=== PATIENT | male | born 1985 | race Asian ===

== ENCOUNTER 2018-10-15 08:28 | Day surgery (SDC) | payer OTHER ==
[~2018-10-15] VITALS: Ht 177.8 cm; Wt 92.5 kg
[2018-10-15 08:56] VITALS: BP 143/81
[2018-10-15 15:27] VITALS: BP 104/60
== END 2018-10-15 15:20 | disposition home or self-care (01) ==
LOC: DS 08:28 → OR 11:00 → DS 15:20
DX: L72.0 Epidermal cyst (principal); I12.9 Hypertensive chronic kidney disease with stage 1 through stage 4 chronic kidney disease, or unspecified chronic kidney disease; E11.22 Type 2 diabetes mellitus with diabetic chronic kidney disease; N18.9 Chronic kidney disease, unspecified; D64.9 Anemia, unspecified; E66.3 Overweight; J45.909 Unspecified asthma, uncomplicated; K21.9 Gastro-esophageal reflux disease without esophagitis; G40.909 Epilepsy, unspecified, not intractable, without status epilepticus; F03.90 Unspecified dementia, unspecified severity, without behavioral disturbance, psychotic disturbance, mood disturbance, and anxiety; Z79.899 Other long term (current) drug therapy; Z68.32 Body mass index [BMI] 32.0-32.9, adult
CPT/HCPCS: J0690; J2001; J2250; J3490; J7120